=== PATIENT | male | born 1965 | race Caucasian/White ===

== ENCOUNTER 2018-04-10 13:31 | Emergency (ER) | payer SELFPAY ==
[~2018-04-10] VITALS: Ht 172.7 cm; Wt 72.6 kg
--- NOTE | 2018-04-10 13:49 | Emergency Room Report ---
History of Present Illness General Chief Complaint: Alcohol Intoxication Source: Patient (Jos Manuel M.D.) Present Illness HPI This patient was brought in by paramedics b/c friends said he had a sz on the call. On arrival the patient did not want to come to ED. Friends/him are homeless, drinking alcohol daily. Pt. will not converse with me, says "I'm fine. " and "I don't care." I can't find out from him if he has had sz in the past. He denies trauma. He denies any specific complaint. Hx. limited. (Jos Manuel M.D.) Allergies: Coded Allergies: No Known Allergies (Unverified , 04/10/18) Nursing Documentation-[facility] Past Medical History: No Stated History (Jos Manuel M.D.) Review of Systems All Other Systems: limited (Jos Manuel M.D.) Physical Exam Vital Signs Date Time Temp Pulse Resp B/P (MAP) Pulse Ox O2 Delivery O2 Flow Rate FiO2 04/10/18 13:27 98.4 94 20 122/86 98 Room Air 98.4 General Appearance: other - looks older, adeline complexion, hard-core alcoholic/ street life Head: normocephalic, atraumatic Eyes: bilateral eye normal inspection ENT: hearing grossly normal, normal voice Neck: full range of motion, supple Respiratory: no respiratory distress, speaking full sentences Cardiovascular #1: regular rate, rhythm Gastrointestinal: non tender Musculoskeletal: normal range of motion Neurologic: alert, oriented x3, normal gait, other - no focal deficits; can talk with me but does not want to; oriented x3, denies complaints, martin spont Psychiatric: mood/affect normal Skin: other - poor hygiene (Jos Manuel M.D.) Medical Decision Making Diagnostic Impression: Primary Impression: Marijuana abuse ER Course Pt. does not have signs of head trauma. He does not have altered/focal findings other than he appears to be intoxicated. There is urinary incontinence, there is no tongue biting. Not knowable if patient truly had sz or not. He was not post-ictal on 911 arrival. At this time no CT head indicated. Will monitor until etoh level known and if not high will consider CT. Otherwise will keep patient here until he is able to navigate the environment. (Jos Manuel M.D.) ER Course Hospital Course 53-year-old M presents to ED with altered mental status. Questionable seizure in the field. History of EtOH Clinical course Patient initially seen and evaluated by Dr. Manuel; please see her note for full history and physical Labs reviewed-electrolytes okay, no leukocytosis, hemoglobin/hematocrit stable, tox panel + THC, ETOH negative CT brain shows no acute pathology Patient allowed to rest. 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 Patient is now more alert oriented. ambulating with steady gait. Safe for discharge i. I feel this is a highly complex case requiring extensive working including EKG/Rhythm strip, Xray/CT/US, Blood/urine lab work, repeat exams while in ED, and administration of strong opiates/narcotics for pain control, admission to hospital or close patient follow up. Diagnosis - marijuana abuse Stable and discharged to home. Followup with PMD. Return to ED if symptoms recur or worsen Labs Test 04/10/18 13:50 04/10/18 15:24 White Blood Count 6.1 K/UL (4.8-10.8) Red Blood Count 4.05 M/UL (4.70-6.10) Hemoglobin 10.3 G/DL (14.2-18.0) Hematocrit 31.4 % (42.0-52.0) Mean Corpuscular Volume 78 FL (80-99) Mean Corpuscular Hemoglobin 25.5 PG (27.0-31.0) Mean Corpuscular Hemoglobin Concent 32.9 G/DL (32.0-36.0) Red Cell Distribution Width 18.4 % (11.6-14.8) Platelet Count 237 K/UL (150-450) Mean Platelet Volume 4.8 FL (6.5-10.1) Neutrophils (%) (Auto) 71.5 % (45.0-75.0) Lymphocytes (%) (Auto) 17.5 % (20.0-45.0) Monocytes (%) (Auto) 8.9 % (1.0-10.0) Eosinophils (%) (Auto) 1.7 % (0.0-3.0) Basophils (%) (Auto) 0.5 % (0.0-2.0) Sodium Level 127 MMOL/L (136-145) Potassium Level 3.5 MMOL/L (3.5-5.1) Chloride Level 93 MMOL/L (98-107) Carbon Dioxide Level 21 MMOL/L (21-32) Anion Gap 13 mmol/L (5-15) Blood Urea Nitrogen 11 mg/dL (7-18) Creatinine 0.8 MG/DL (0.55-1.30) Estimat Glomerular Filtration Rate > 60 mL/min (>60) Glucose Level 94 MG/DL (74-106) Calcium Level 8.6 MG/DL (8.5-10.1) Serum Alcohol < 3 mg/dL Urine Color Yellow Urine Appearance Clear Urine pH 5 (4.5-8.0) Urine Specific [place] 1.020 (1.005-1.035) Urine Protein Negative (NEGATIVE) Urine Glucose (UA) Negative (NEGATIVE) Urine Ketones 3+ (NEGATIVE) Urine Blood Negative (NEGATIVE) Urine Nitrite Negative (NEGATIVE) Urine Bilirubin Negative (NEGATIVE) Urine Urobilinogen 8 MG/DL (0.0-1.0) Urine Leukocyte Esterase Negative (NEGATIVE) Urine RBC 0-2 /HPF (0 - 0) Urine WBC 0-2 /HPF (0 - 0) Urine Squamous Epithelial Cells Occasional /LPF Urine Calcium Oxalate Crystals Moderate /LPF (NONE) Urine Bacteria Few /HPF (NONE) Urine Mucus Moderate /LPF (NONE/OCC) Urine Opiates Screen Negative (NEGATIVE) Urine Barbiturates Screen Negative (NEGATIVE) Phencyclidine (PCP) Screen Negative (NEGATIVE) Urine Amphetamines Screen Negative (NEGATIVE) Urine Benzodiazepines Screen Negative (NEGATIVE) Urine Cocaine Screen Negative (NEGATIVE) Urine Marijuana (THC) Screen Positive (NEGATIVE) (Guero López MD) CT/MRI/US Diagnostic Results CT/MRI/US Diagnostic Results : Imaging Test Ordered: CT Head Impression no acute process (Guero López MD) Last Vital Signs Date Time Temp Pulse Resp B/P (MAP) Pulse Ox O2 Delivery O2 Flow Rate FiO2 04/10/18 13:27 98.4 94 20 122/86 98 Room Air 98.4 (Jos Manuel M.D.) Status: improved (Guero López MD) Disposition: HOME, SELF-CARE Condition: Stable Patient Instructions: Alcohol Intoxication, [id number], Alcohol Use Disorder Jos Manuel M.D. Apr 10, 2018 13:49 Guero López MD Apr 10, 2018 23:36
[2018-04-10 13:52] VITALS: BP 117/61
[2018-04-10 14:11] LABS: BASOPHILS % (AUTO) 0.5 % (0.0-2.0); EOSINOPHILS % (AUTO) 1.7 % (0.0-3.0); HEMATOCRIT 31.4 % (42.0-52.0); HEMOGLOBIN 10.3 G/DL (14.2-18.0); LYMPHOCYTES % (AUTO) 17.5 % (20.0-45.0); MEAN CORPUSCULAR VOLUME 78 FL (80-99); MONOCYTES % (AUTO) 8.9 % (1.0-10.0); NEUTROPHILS % (AUTO) 71.5 % (45.0-75.0); PLATELET COUNT 237 K/UL (150-450); RED BLOOD COUNT 4.05 M/UL (4.70-6.10); RED CELL DISTRIBUTION WIDTH 18.4 % (11.6-14.8); WHITE BLOOD COUNT 6.1 K/UL (4.8-10.8)
[2018-04-10 14:28] LABS: ANION GAP 13 mmol/L (5-15); BLOOD UREA NITROGEN 11 mg/dL (7-18); CALCIUM 8.6 MG/DL (8.5-10.1); CARBON DIOXIDE 21 MMOL/L (21-32); CHLORIDE 93 MMOL/L (98-107); CREATININE 0.8 MG/DL (0.55-1.30); POTASSIUM 3.5 MMOL/L (3.5-5.1); SODIUM 127 MMOL/L (136-145)
--- NOTE | 2018-04-10 15:28 | Diagnostic Imaging Report ---
Indications: Altered mental status, seizure Technique: Spiral acquisitions obtained through the brain. Angled axial and coronal 5 x 5 mm slices were reconstructed. Total dose length product 1488.69 mGycm. CTDI vol(s) 70.38 mGy. Dose reduction achieved using automated exposure control Comparison: None. Findings: There is a left temporoparietal craniectomy defect noted. There is central and cortical volume loss, somewhat advanced for patient's age. Area of encephalomalacia is seen in the right inferior frontal lobe. No acute intracranial hemorrhage nor edema, mass effect, nor midline shift. Normal morales-white differentiation. The remainder the calvarium is intact. Scalp soft tissue densities in the high parietal regions bilaterally are likely related to prior surgery. Impression: Evidence of prior left craniectomy. Correlate with surgical history Cerebral: Central volume loss, advanced for age. Right inferior frontal encephalomalacia, may reflect prior infarct or injury Negative for acute intracranial bleed or mass effect The CT scanner at [facility] is accredited by the [employer] and the scans are performed using protocols designed to limit radiation exposure to as low as reasonably achievable to attain images of sufficient resolution adequate for diagnostic evaluation.
[2018-04-10 16:18] LABS: APPEARANCE,URINE CLEAR; BILIRUBIN, URINE NEGATIVE (NEGATIVE); GLUCOSE, URINE (UA) NEGATIVE (NEGATIVE); KETONES,URINE 3+ (NEGATIVE); LEUKOCYTE ESTERASE ,URINE NEGATIVE (NEGATIVE); NITRITE,URINE NEGATIVE (NEGATIVE); PH,URINE 5 (4.5-8.0); PROTEIN,URINE NEGATIVE (NEGATIVE); UROBILINOGEN,URINE 8 MG/DL (0.0-1.0)
[2018-04-10 16:21] LABS: COLOR,URINE YELLOW
[2018-04-10 17:29] VITALS: BP 121/71
== END 2018-04-10 17:31 | disposition home or self-care (01) ==
LOC: EDBD 13:31 → EMR 14:17
DX: F12.10 Cannabis abuse, uncomplicated (principal); F10.129 Alcohol abuse with intoxication, unspecified; R32 Unspecified urinary incontinence; R41.82 Altered mental status, unspecified; G93.89 Other specified disorders of brain
CPT/HCPCS: 36415; 70450; 80048; 80307; 81001; 85025; 99284; G0480; 80329

== ENCOUNTER 2018-04-10 19:00 | Emergency (ER) | payer SELFPAY ==
[~2018-04-10] VITALS: Ht 172.7 cm; Wt 72.6 kg
--- NOTE | 2018-04-11 00:15 | Emergency Room Report ---
History of Present Illness General Chief Complaint: Head Injury Source: Patient Present Illness HPI 53-year-old male presents ED for evaluation. Patient was found near the hospital on the ground. Swelling to the right forehead. Patient not providing history. Patient was familiar to hospital staff as he was recently discharged from the hospital. Patient denying any pain. Denies chest pain or shortness of breath. No other aggravating relieving factors. Denies any other associated symptoms Allergies: Coded Allergies: No Known Allergies (Unverified , 04/10/18) Patient History Past Medical History: none Past Surgical History: none Pertinent Family History: none Social History: Denies: smoking, alcohol use, drug use Immunizations: UTD Reviewed Nursing Documentation: PMH: Agreed; PSxH: Agreed Review of Systems All Other Systems: negative except mentioned in HPI Physical Exam Vital Signs Date Time Temp Pulse Resp B/P (MAP) Pulse Ox O2 Delivery O2 Flow Rate FiO2 04/10/18 19:30 98.0 64 16 119/77 98 Room Air 98.1 Sp02 EP Interpretation: reviewed, normal General Appearance: no apparent distress, alert, GCS 15, non-toxic Head: other - bruising/swelling above R eye Eyes: bilateral eye normal inspection, bilateral eye PERRL, bilateral eye EOMI ENT: hearing grossly normal, normal pharynx, no angioedema, normal voice Neck: full range of motion, supple/symm/no masses Respiratory: chest non-tender, lungs clear, normal breath sounds, speaking full sentences Cardiovascular #1: regular rate, rhythm, no edema Gastrointestinal: normal inspection Rectal: deferred Genitourinary: no CVA tenderness Musculoskeletal: normal inspection Neurologic: alert, oriented x3, responsive, motor strength/tone normal, sensory intact, speech normal Psychiatric: normal inspection Skin: normal inspection Lymphatic: normal inspection Medical Decision Making Diagnostic Impression: Primary Impression: Acute head injury Qualified Codes: S09.90XA - Unspecified injury of head, initial encounter ER Course Hospital Course 53-year-old male presents to ED found on ground outside hospital. Swelling to the forehead. Differential diagnoses include: Psychosis, EtOH, drug abuse Clinical course patient placed on stretcher. I reviewed EMR. Patient was seen by myself and subsequently discharged earlier today. Workup included CT head which was negative. Drug screen positive for THC patient had been observed for some time and subsequently discharged after walking with a steady gait. Given the recent injury after discharge repeat CT imaging was indicated CT brain shows no acute intracranial pathology, evidence of old craniotomy. Evidence of a hematoma over the right eye. Patient allowed to sleep. I see no reason to recheck labs. Patient is subsequently safe for discharge i. I feel this is a highly complex case requiring extensive working including EKG/Rhythm strip, Xray/CT/US, Blood/urine lab work, repeat exams while in ED, and administration of strong opiates/narcotics for pain control, admission to hospital or close patient follow up. Diagnosis -acute head injury Stable and discharged to home. Followup with PMD. Return to ED if symptoms recur or worsen CT/MRI/US Diagnostic Results CT/MRI/US Diagnostic Results : Imaging Test Ordered: CT Head Impression No acute intracranial pathology. -Large right scalp hematoma and extensive right periorbital soft tissue swelling. Last Vital Signs Date Time Temp Pulse Resp B/P (MAP) Pulse Ox O2 Delivery O2 Flow Rate FiO2 04/10/18 19:30 98.0 64 16 119/77 98 Room Air 98.1 Status: improved Disposition: HOME, SELF-CARE Condition: Stable Referrals: NOT CHOSEN IPA/,REFERRING (PCP) Guero López MD Apr 11, 2018 00:15
[2018-04-11 04:30] VITALS: BP 111/67
[2018-04-11 04:40] VITALS: BP 111/67
--- NOTE | 2018-04-11 09:28 | Diagnostic Imaging Report ---
Indications: Pain, lump on right side of forehead Technique: Spiral acquisitions obtained through the brain. Angled axial and coronal 5 x 5 mm slices were reconstructed. Total dose length product 1485.17 mGycm. CTDI vol(s) 70.38 mGy. Dose reduction achieved using automated exposure control Comparison: 5 hours earlier Findings: Interim development of a large right periorbital and supraorbital scalp hematoma, not evident on the previous study. No acute intracranial hemorrhage or edema, mass effect, nor midline shift. Again demonstrated is a left temporoparietal craniectomy defect. Osseous deformity of the right parietal calvarium may indicate prior surgery or healed trauma. Again demonstrated is enlargement of the ventricles and extra-axial CSF spaces. Again demonstrated is right inferior frontal encephalomalacia. No acute calvarial fracture demonstrated. Impression: New, since 5 hours earlier, large right periorbital scalp hematoma Negative for acute intracranial bleed or mass effect Cerebral volume loss again demonstrated, out of proportion to age Right inferior frontal encephalomalacia again demonstrated Other stable findings as described This agrees with the preliminary interpretation provided overnight by [facility] teleradiology service. The CT scanner at [facility] is accredited by the [employer] and the scans are performed using protocols designed to limit radiation exposure to as low as reasonably achievable to attain images of sufficient resolution adequate for diagnostic evaluation.
== END 2018-04-11 04:40 | disposition home or self-care (01) ==
LOC: EMR 22:13
DX: S09.90XA Unspecified injury of head, initial encounter (principal); X58.XXXA Exposure to other specified factors, initial encounter; Y93.9 Activity, unspecified; Y92.238 Other place in hospital as the place of occurrence of the external cause
CPT/HCPCS: 70450; 99284